=== PATIENT | male | born 1960 | race Caucasian/White ===

== ENCOUNTER 2017-03-23 10:10 | Emergency (ER) | payer MEDICAID ==
[~2017-03-23] VITALS: Ht 180.3 cm; Wt 86.4 kg
[2017-03-23] MEDS ORDERED: KETOROLAC TROMETHAMINE 60 MG/2 ML VIAL IM ONE (11:45)
[2017-03-23] MEDS ORDERED: METOCLOPRAMIDE HCL 5 MG/ML 2 ML VIAL IM ONE (11:45)
[2017-03-23 11:59] VITALS: BP 134/83
== END 2017-03-23 12:30 | disposition home or self-care (01) ==
LOC: EMS 10:12
DX: S13.4XXA Sprain of ligaments of cervical spine, initial encounter (principal); R51 Headache; J32.9 Chronic sinusitis, unspecified; F15.90 Other stimulant use, unspecified, uncomplicated; F17.210 Nicotine dependence, cigarettes, uncomplicated; W22.8XXA Striking against or struck by other objects, initial encounter; Y93.89 Activity, other specified; Y92.89 Other specified places as the place of occurrence of the external cause; Y99.8 Other external cause status
CPT/HCPCS: 70450; 72125; 96372; 99284; J1885; J2765